=== PATIENT | male | born 1990 | race Caucasian/White ===

== ENCOUNTER 2022-12-22 04:03 | Emergency (ER) | payer OTHER, SELFPAY ==
[2022-12-22 04:09] VITALS: BP 129/88; BP 140/100; PULSE 16; PULSE 71; RESP 16; TEMP 36.9; O2SAT 98; BMI 30.6
[2022-12-22 04:19] VITALS: BP 129/77; PULSE 71; RESP 16; TEMP 36.9; O2SAT 98
[2022-12-22 04:46] LABS: Basophils Percent Auto 0.4 % (0-2); Eosinophils Absolute Auto 0.1 X10*3/uL (0.0-0.4); Eosinophils Percent Auto 1.2 % (0-4); Hematocrit 40.2 % (42.0-52.0); Hemoglobin 13.7 g/dl (14.0-18.0); Imm Gran Abs Auto 0.02 X10*3/uL (0.00-0.03); Imm Gran Pct Auto 0.3 % (0.0-0.4); Lymphocytes Absolute Auto 4.1 X10*3/uL (1.2-4.9); MANUAL DIFF FLAG NO; Mean Corpuscular HGB Conc 34.1 g/dl (31.0-36.0); Mean Corpuscular Hemoglobin 30.1 pg (27.0-33.0); Mean Corpuscular Volume 88.4 fL (80.0-98.0); Mean Platelet Volume 10.6 fL (9.4-12.4); Monocytes Absolute Auto 0.4 X10*3/uL (0.1-1.2); Monocytes Percent Auto 4.7 % (2-11); Neutrophils Absolute Auto 3.1 x10*3/uL (2.0-8.3); Neutrophils Percent Auto 40.4 % (45-73); Platelet Count 199 X10*3/uL (160-400); Red Blood Count 4.55 X10*6/uL (4.60-5.80); Red Cell Distribution Width 12.8 % (11.0-16.0); White Blood Count 7.7 X10*3/uL (4.8-10.8)
[2022-12-22 04:47] LABS: Appearance Urine Clear; Color Urine Yellow; Glucose Urine UA Negative (Negative); Leukocyte Esterase Urine Negative (Negative); Nitrite Urine Negative (Negative); PH 5.5 (5.0-9.0); Specific Gravity - Urine <= 1.005 (1.005-1.025); Urine Blood Negative (Negative); Urine Ketones Negative (Negative); Urine Protein Negative (Neg-Trace)
--- NOTE | 2022-12-22 04:48 | PC.NURSE ---
Patient arrived via EMS after being found sleeping in car with several of beer cans inside. Patient alert and oriented on arrival. Reports having 6 beers. States he is having epigastric pain as well. IV accessed 20 gauge in right ac. Labs drawn, urine collected and sent down to lab. Call nguyen within reach. Will continue to follow plan of care.
[2022-12-22 04:56] LABS: Amphetamine Screen Urine Not Detected (Not Detect); Barbiturates, Urine Not Detected (Not Detect); Benzodiazepines Screen Urine Not Detected (Not Detect); Cannabinoid Screen Urine Not Detected (Not Detect); Cocaine Screen Urine Not Detected (Not Detect); Fentanyl, urine Not Detected (Not Detect); Opiate Screen Urine Not Detected (Not Detect); Phencyclidine Screen Urine Not Detected (Not Detect)
--- OUTSIDE RECORDS SUMMARY | 2022-12-22 04:56 | XMS_ITS | Continuity of Care Document ---
Author Name Unknown Organization [facility] Address [address] [place] [address]- Care Team Providers Care [place] Seamer Name Role Phone Blanche ROSALES, Marija Primary Care Physician [place] [facility] [place] [facility] [id number] Date(s): 11/06/19 - 11/16/19 [facility]/[address] [address]- [facility] Attending Physician: Pranav, Jose Daniel Admitting Physician: AdmtrJose Daniel Referring Physician: Admtr, Davin8 Allergies, Adverse Reactions, Alerts No Known Medication Allergies Substance Reaction Severity Status NKA Active Immunizations Given and Recorded Vaccine Date Status Refusal Reason influenza virus vaccine, inactivated 06/10/18 Give n influenza virus vaccine, inactivated 09/18/16 Give n influenza virus vaccine, inactivated 1 06/30/15 [facility] Measles/Mumps/Rubella Virus Vaccine 2 10/09/16 Giv en Measles/Mumps/Rubella Virus Vaccine 10/09/16 Given tetanus/diphtheria/pertussis, acel(Tdap) 09/18/16 Given 1Result Comment: [06/30/2015] ORDERED BY DR. AMIN 2Result Comment: [10/09/2016 Uncharted] duplicate charting Medications hydrocortisone 1% topical cream 1 applicator, Topically, 2 times a day, for 14 days, apply in a thin film to the affected skin and rub in gently and completely., # 15 Gm, 0 Refills, Acute 11/20/19 13:57:00 EDT, 11/06/19 13:57:00 EDT, [facility], 1 applicator Topi... Start Date: 11/06/19 Stop Date: 11/20/19 Status: Ordered selenium sulfide 2.3% topical shampoo 1 application, Topically, Daily, PRN as needed for scaly scalp and face, Leave on x 10 mins, then rinse, # 180 mL, 2 Refills, Maintenance, 11/06/19 13:56:00 EDT, Shampoo, [facility], if not available please let me kmow.thanks, 1 ap... Start Date: 11/06/19 Stop Date: 02/04/20 Status: Ordered Tylenol Extra Strength 500 mg oral tablet 2 tablet = 1,000 mg, By Mouth, 3 times a day, PRN back pain, # 50 tablet, 0 Refills, Maintenance, 09/16/18 18:43:41 EST Start Date: 09/16/18 Status: Ordered Problem List Condition Effective Dates Status Health Status Inform ant Hepatitis B immune(Confirmed) Active Positive H. pylori titer(Confirmed) Active Hepatic steatosis(Confirmed) 1 Active 1US abdomen May 2018 Social History Social History Type Response Tobacco Use: 4 or less cigar ettes(less than 1/4 pack)/day in last 30 days. Type: Cigarettes. Tobacco use times per day: 2-3 CIGS A DAY. Started at age: 17 Years. Sex
--- OUTSIDE RECORDS SUMMARY | 2022-12-22 04:56 | XMS_ITS | Continuity of Care Document ---
Author Name Unknown Organization [facility] Address [address] [place] [address]- Care Team Providers Care Inside Sales Supervisor Name Role Phone Blanche ROSALES, Marija Primary Care Physician Encounter [facility] [place] Date(s): 12/16/20 - 02/18/21 [facility] [address] [address]- Attending Physician: Hadley Covarrubias MD Admitting Physician: Hadley Covarrubias MD Allergies, Adverse Reactions, Alerts No Known Medication [...] 2Result Comment: [10/09/2016 Uncharted] duplicate charting Medications selenium sulfide 2.3% topical shampoo 1 application, Topically, Daily, PRN as needed for scaly scalp and face, Leave on x 10 mins, then rinse, # 180 mL, 2 Refills, Maintenance, 11/06/19 13:56:00 EDT, Shampoo, [facility], if not available please let me kmow.thanks, [...]
--- OUTSIDE RECORDS SUMMARY | 2022-12-22 04:56 | XMS_ITS | Continuity of Care Document ---
Author Name Unknown Organization [facility] Address [address] [place] [address]- Care Team Providers Care Boilermaker Welder Name Role Phone Blanche ROSALES, Marija Primary Care Physician En[place] [facility] [place] Date(s): 01/19/21 - 02/18/21 [facility] [address] [address]- Attending Physician: Jose Daniel Rock Admitting Physician: AdmtrJose Daniel Referring Physician: Admtr, ArShimon Allergies, Adverse Reactions, Alerts No Known Medication [...] 2 Refills, Maintenance, 11/06/19 13:56:00 EDT, Shampoo, [facility], if not available please let me kmow.thanks, [...]
--- OUTSIDE RECORDS SUMMARY | 2022-12-22 04:56 | XMS_ITS | Continuity of Care Document ---
Author Name Unknown Organization [facility] Address [address] [place] [address]- Care Team Providers Care Ammunition Storage Superintendent Name Role Phone Blanche ROSALES, Marija Primary Care Physician Encounter [facility] [place] Date(s): 12/16/20 - 01/28/21 [facility] [address] [address]- Attending Physician: Hadley Covarrubias MD Admitting Physician: [...] 2 Refills, Maintenance, 11/06/19 13:56:00 EDT, Shampoo, [facility], if not available please let me [...]
--- OUTSIDE RECORDS SUMMARY | 2022-12-22 04:56 | XMS_ITS | Continuity of Care Document ---
Author Name Unknown Organization [facility] Address [address] [place] [address]- Care Team Providers Care Scrap Dealer Name Role Phone Blanche ROSALES, Marija Primary Care Physician En[place] [facility] [place] [id number] Date(s): 11/02/22 - 12/02/22 [facility] [address]- Attending Physician: Jose Daniel Rock Admitting Physician: AdmtrJose Daniel Referring Physician: Admtr, Ar8 Allergies, Adverse Reactions, Alerts No Known Allergies Immunizations Given and Recorded Vaccine Date Status Refusal Reason influenza virus vaccine, inactivated 11/02/22 Artie rded influenza virus vaccine, inactivated 06/10/18 Give n influenza virus vaccine, inactivated 09/18/16 Give n influenza virus vaccine, inactivated 1 06/30/15 [facility] SARS-CoV-2 mRNA ([id number]) vax 11/20/21 Given SARS-CoV-2 (COVID-19) mRNA BNT-162b2 vac 05/14/21 Recorded SARS-CoV-2 (COVID-19) mRNA BNT-162b2 vac 04/04/21 Recorded Measles/Mumps/Rubella Virus Vaccine 2 10/09/16 Giv en Measles/Mumps/Rubella Virus Vaccine 10/09/16 Given tetanus/diphtheria/pertussis, acel(Tdap) 09/18/16 Given 1Result Comment: [06/30/2015] ORDERED BY DR. AMIN 2Result Comment: [10/09/2016 Uncharted] duplicate charting Medications famotidine 40 mg oral tablet 1 tablet = 40 mg, By Mouth, Daily at bedtime, # 30 tablet, 3 Refills, Maintenance, 11/02/22 15:31:00 EDT, Tablet, [id number], Partial fill upon patient request if the prescription is for a schedule II opioid drug., 162.5, cm, 11/02/22 14:42:00... Start Date: 11/02/22 Stop Date: 03/02/23 Status: Ordered fluocinonide 0.05% topical solution APPLY TO SCALP TWICE A DAY NEEDED FOR FLARES Start Date: 11/02/22 Status: Ordered Humira Pen 40 mg/0.4 mL subcutaneous kit 0 Refills, Maintenance, 11/02/22 15:15:00 EDT, Partial fill upon patient request if the prescription is for a schedule II opioid drug. Start Date: 11/02/22 Status: Ordered tiZANidine 2 mg oral tablet 2 mg, 1, tablet, By Mouth, 3 times a day, PRN, # 50 each, Refills 0, Tot. Refills 0, Maintenance, Headache, 09/20/22 15:16:00 EST, Route to Pharmacy Electronically, [id number], Partial fill upon patient request if the prescription is... Start Date: 09/20/22 Status: Ordered triamcinolone 0.1% topical cream APPLY TO TRUNK, ARMS, LEGS TWICE A DAY NEEDED FOR FLARES Start Date: 11/02/22 Status: Ordered Problem List Condition Confirmation Course Effective Dates Status Health St [facility] Informant Hepatitis B immune Confirmed Active Obese class I Confirmed Active Plaque psoriasis Confirmed Active Positive H. pylori titer 1 Confirmed Active Hepatic steatosis 2 Confirmed Active 1s/p triple therapy in 2017 2US abdomen May 2018 Social History Social History Type Response Tobacco Use: 4 or less cigar ettes(less than 1/4 pack)/day in last 30 days. Other: 1-2 cigs per day. Type: Cigarettes. Started at age: 17 Years. Sex Note * Event Display: Non Lab Results Authored Date: Patient Care team information Care Team Personnel Name: Marija Mancia MD Position: [facility] Primary Care Physician Member Role: PCP Address: Address: [address] [place] [id number]- Care Team Related Persons Name: ANA MCDONALD Address: home [address] [place] [id number]
--- OUTSIDE RECORDS SUMMARY | 2022-12-22 04:56 | XMS_ITS | Continuity of Care Document ---
Author Name Unknown Organization [facility] Address Unknown Care Team Providers Care Councillor Aboriginal Land Council Name Role Phone Blanche ROSALES, Marija Primary Care Physician En[place] [facility] [place] Date(s): 11/20/21 - 03/04/22 [facility] Attending Physician: Marija Mancia MD Admitting Physician: Marija Mancia MD Allergies, Adverse Reactions, Alerts No Known Allergies Immunizations Given and Recorded Vaccine Date Status Refusal Reason SARS-CoV-2 mRNA (corinne) vax 11/20/21 Given SARS-CoV-2 (COVID-19) mRNA BNT-162b2 vac 05/14/21 Recorded SARS-CoV-2 (COVID-19) mRNA BNT-162b2 vac 04/04/21 Recorded influenza virus vaccine, inactivated 06/10/18 Give n influenza virus vaccine, inactivated 09/18/16 Give n influenza virus vaccine, inactivated 1 06/30/15 [facility] Measles/Mumps/Rubella Virus Vaccine 2 10/09/16 Giv en Measles/Mumps/Rubella Virus Vaccine 10/09/16 Given tetanus/diphtheria/pertussis, acel(Tdap) 09/18/16 Given 1Result Comment: [06/30/2015] ORDERED BY DR. AMIN 2Result Comment: [10/09/2016 Uncharted] duplicate charting Medications betamethasone topical dipropionate 0.05% ointment 1 application, Topically, 2 times a day, # 45 Gm, 1 Refills, Maintenance, 11/20/21 11:50:00 EDT, Ointment, [facility], expect pt to need 720mg for 4 weeks given. Please dispense 700mg /4 weeks ; pt instructions in bengali, 1 applic... Start Date: 11/20/21 Stop Date: 01/15/22 Status: Ordered calcipotriene 0.005% topical cream 1 application, Topically, 2 times a day, # 100 Gm, 1 Refills, Maintenance, 11/20/21 11:51:00 EDT, Cream, [facility], expect pt to need 720mg for 4 weeks given. Please dispense 700mg /4 weeks, 1 application Topically 2 times a day,x... Start Date: 11/20/21 Stop Date: 01/15/22 Status: Ordered selenium sulfide 2.3% topical shampoo 1 application, Topically, Daily, PRN as needed for scaly scalp and face, Leave on x 10 mins, then rinse, # 180 mL, 2 Refills, Maintenance, 11/06/19 13:56:00 EDT, Shampoo, [facility], if not available please let me [...] Status Inform ant Hepatitis B immune(Confirmed) Active Obese class I(Confirmed) Active Plaque psoriasis(Confirmed) Active Positive H. pylori titer(Confirmed) Active Hepatic steatosis(Confirmed) 1 Active 1US abdomen May 2018 Social History Social History Type Response Tobacco Use: 4 or less cigar ettes(less than 1/4 pack)/day in last 30 days. Type: Cigarettes. Tobacco use times per day: 2-3 CIGS A DAY. Started at age: 17 Years. Sex
--- OUTSIDE RECORDS SUMMARY | 2022-12-22 04:56 | XMS_ITS | Continuity of Care Document ---
Author Name Unknown Organization [facility] Address Unknown Care Team Providers Care Mine Engineering Manager Name Role Phone Blanche ROSALES, Mraija Primary Care Physician [place] [facility] [place] [id number] Date(s): 02/02/22 - 03/04/22 [facility] Attending Physician: Jose Daniel Rock Admitting Physician: Jose Daniel Rock Referring Physician: AdmtrJose Daniel Allergies, Adverse Reactions, Alerts No Known Allergies Immunizations Given and Recorded Vaccine Date Status Refusal Reason SARS-CoV-2 mRNA ([id number]) vax 11/20/21 Given SARS-CoV-2 (COVID-19) mRNA BNT-162b2 [...] 1 Refills, Maintenance, 11/20/21 11:50:00 EDT, Ointment, [facility], expect pt to need 720mg for 4 weeks given. Please dispense 700mg /4 weeks ; pt instructions in ghanaian, 1 applic... Start Date: 11/20/21 Stop Date: 01/15/22 Status: Ordered calcipotriene 0.005% topical cream 1 application, Topically, 2 times a day, # 100 Gm, 1 Refills, Maintenance, 11/20/21 11:51:00 EDT, Cream, [facility], expect pt to need 720mg for [...] 2 Refills, Maintenance, 11/06/19 13:56:00 EDT, Shampoo, [facility], if not available please let me [...]
--- OUTSIDE RECORDS SUMMARY | 2022-12-22 04:56 | XMS_ITS | Continuity of Care Document ---
Author Name Unknown Organization [facility] Address [address] [place] [address]- Care Team Providers Care Beam Builder Helper Name Role Phone Blanche ROSALES, Marija Primary Care Physician ( [phone] [place] [facility] [place] - 10/20/22 [facility] [address]- [place] Allergies, Adverse Reactions, Alerts No Known Allergies Immunizations Given and Recorded Vaccine Date Status Refusal Reason SARS-CoV-2 mRNA ([id number]) vax 11/20/21 Given SARS-CoV-2 (COVID-19) mRNA BNT-162b2 [...] 1 Refills, Maintenance, 11/20/21 11:50:00 EDT, Ointment, [facility], expect pt to need 720mg for 4 weeks given. Please dispense 700mg /4 weeks ; pt instructions in telugu, 1 applic... Start Date: 11/20/21 Stop Date: 01/15/22 Status: Ordered calcipotriene 0.005% topical cream 1 application, Topically, 2 times a day, # 100 Gm, 1 Refills, Maintenance, 11/20/21 11:51:00 EDT, Cream, [facility], expect pt to need 720mg for 4 weeks given. Please dispense 700mg /4 weeks, 1 application Topically 2 times a day,x... Start Date: 11/20/21 Stop Date: 01/15/22 Status: Ordered dicyclomine 10 mg oral capsule 1 capsule = 10 mg, By Mouth, 4 times a day, # 56 capsule, 0 Refills, Maintenance, 09/20/22 15:15:00EST, Capsule, [id number], Partial fill upon patient request if the prescription isfor a schedule II opioid drug., 162.5, cm, 09/20/22... Start Date: 09/20/22 Stop Date: 10/04/22 Status: Ordered loperamide 2 mg oral tablet 1 tablet = 2 mg, By Mouth, Every 4 hours, PRN as needed for loose stool, not to exceed 16 mg/day, #12 tablet, 0 Refills, Acute 06/29/23 15:15:00 EST, 09/20/22 15:15:00 EST, Tablet, [id number], Partial fill upon patient request if the... Start Date: 09/20/22 Stop Date: 06/29/23 Status: Ordered ondansetron 4 mg oral tablet 1 tablet = 4 mg, By Mouth, Every 8 hours, PRN Nausea, # 12 tablet, 0 Refills, Acute 06/29/23 15:16:00 EST, 09/20/22 15:15:00 EST, Tablet, [id number], Partial fill upon patient request if the prescription is for a schedule II opioid dr... Start Date: 09/20/22 Stop Date: 06/29/23 Status: Ordered selenium sulfide 2.3% topical shampoo 1 application, Topically, Daily, PRN as needed for scaly scalp and face, Leave on x 10 mins, then rinse, # 180 mL, 2 Refills, Maintenance, 11/06/19 13:56:00 EDTSaad, [facility], if not available please let me keisha.thanks, 1 ap... Start Date: 11/06/19 Stop Date: 02/04/20 Status: Ordered tiZANidine 2 mg oral tablet 2 mg, 1, tablet, By Mouth, 3 times a day, PRN, # 50 each, Refills 0, Tot. Refills 0, Maintenance, Headache, 09/20/22 15:16:00 EST, Route to Pharmacy Electronically, [id number], Partial fill upon patient request if the prescription is... Start Date: 09/20/22 Status: Ordered Tylenol Extra Strength 500 mg oral tablet 2 tablet = 1,000 mg, By Mouth, 3 times a day, PRN back pain, # 50 tablet, 0 Refills, Maintenance, 09/16/18 18:43:41 EST Start Date: 09/16/18 Status: Ordered Problem List Condition Confirmation Course Effective Dates Status Health St [facility] Informant Hepatitis B immune Confirmed Active Obese class I Confirmed Active Plaque psoriasis Confirmed Active Positive H. pylori titer Confirmed Active Hepatic steatosis 1 Confirmed Active 1US abdomen May 2018 Social History Social History Type Response Tobacco Use: 4 or less cigar ettes(less than 1/4 pack)/day in last 30 days. Type: Cigarettes. Tobacco use times per day: 2-3 CIGS A DAY. Started at age: 17 Years. Sex Patient Care team information Care Team Personnel Name: Marija Mancia MD Position: S Primary Care Physician Member Role: PCP Address: Address: [address] [place] [address]- Care Team Related Persons Name: ANA MCDONALD Address: home [address] [place] [id number]
[2022-12-22 05:01] LABS: Alanine Aminotransferase 113 U/L (0-40); Albumin Level 4.5 g/dL (3.5-5.0); Alkaline Phosphatase 72 U/L (39-117); Anion Gap 13 (12-20); Aspartate Amino Transferase 52 U/L (5-37); Bilirubin Direct 0.2 mg/dL (0.0-0.5); Bilirubin Total 0.7 mg/dL (0.0-1.0); Blood Urea Nitrogen 10 mg/dL (9-16); Calcium 9.4 mg/dL (8.4-10.2); Carbon Dioxide 27 mmol/L (22-29); Chloride 105 mmol/L (96-108); Creatinine Clr Calc Pharmacy 111.3; Estimated Glomerular Filt Rate > 60; Ethanol 202 mg/dL; Glucose Random 93 mg/dL (60-115); Potassium 4.1 mmol/L (3.3-5.1); Sodium 141 mmol/L (135-145); Total Protein 7.8 g/dL (6.5-8.0)
--- NOTE | 2022-12-22 06:42 | ED_ITS ---
HPI - Alcohol General Chief Complaint: ETOH/Substance Use Stated Complaint: ETOH Time Seen by Provider: 12/22/22 06:33 Source: patient and event management consultant Mode of arrival: EMS Limitations: language barrier and altered mental status History of Present Illness HPI narrative: Patient is a 32-year-old male with no documented past history brought to ED by EMS for alcohol intoxication after being found in his vehicle with empty beer cans. Patient minimally able to participate in assessment, wakes to voice then quickly goes back to sleep. He does admit to alcohol use last night, states is unsure of amount. Reports he speaks a little Turkish but prefers Swiss. He denies any complaints of headache, abdomninal pain, nausea at this time. Related Data Allergies Allergy/AdvReac Type Severity Reaction Status Date / Time Unable to Assess Allergy Unverified 12/22/22 06:44 Review of Systems Review of Systems: As per HPI Yes all other systems are reviewed and are negative PMFSH Social History Social History Alcohol intake: current Alcohol intake frequency: holidays/special occasions only Alcohol type: beer Advance Directives: No Advance Directives Information Provided: Yes Physical Exam ED Vital Signs: Vital Signs - 24 hr 12/22/22 04:09 12/22/22 04:19 12/22/22 06:53 Temperature 98.5 F 98.5 F 98.4 F Pulse Rate 71 71 77 Respiratory Rate 16 16 16 Blood Pressure 129/88 129/77 130/84 Pulse Oximetry 98 98 96 Oxygen Delivery Method Room Air Room Air Room Air 12/22/22 08:39 Temperature 98.0 F Pulse Rate 85 Respiratory Rate 18 Blood Pressure 116/75 Pulse Oximetry 98 Oxygen Delivery Method Room Air BMI result Body Mass Index 30.6 Const General: cooperative, healthy appearing, no acute distress, alert and awake Nutritional Appearance: average body habitus Orientation/consciousness: oriented to person, oriented to place and oriented to time Limitations: language barrier HENMT Head: Yes normal to inspection, Yes normocephalic and Yes atraumatic Ears: external ears normal General nose exam: Normal external nose present Mouth: Normal oral and palatal mucosa present Eyes Pupils: Equal, round and reactive pupils present Neck Neck: Yes normal visual inspection Chest Chest palpation & inspection: normal inspection of the chest and normal palpation of entire chest wall Resp Effort & Inspection: normal respiratory effort Auscultation: clear to auscultation bilaterally Cardio Rate: regular rate Rhythm: regular rhythm Heart sounds: S1 normal heart sound present and S2 normal heart sound present GI Inspection: Yes normal to inspection Palpation (GI): Soft to palpation, nontender, no guarding, no hepatosplenomegaly and No Rebound tenderness present Auscultation: normoactive bowel sounds Skin General skin exam: no rashes or lesions noted Trauma: no lacerations or abrasions Neuro General: oriented to person, oriented to place, oriented to time and gait normal Cranial nerves: Yes Equal, round and reactive pupils present Cognition (Neuro): normal cognition Motor exam (neuro): 5/5 motor strength present throughout Extrem General: Yes normal to inspection and Yes full ROM Psych Speech and movement: Normal speech and movement present Affect: normal affect Attitude: cooperative Thought process: Normal thought process present Thought content: suicidality and no homicidality Insight: Good insight present (Psych) Judgement: Good judgement present (Psych) Course Course Course Narrative: 09:20 Patient re-evaluated now that he is sober. He is alert and oriented, complains of mild epigastric pain and feels hungry. He states that he drinks every 3 to 4 months, does not drink daily and declines treatment for alcohol detox. He denies any thoughts of SI or HI. Abdominal exam and labs unremarkable, VSS, pt tolerated PO food and drink and witnessed ambulating with steady gait, will discharge home. Medical Decision Making Medical Decision Making [facility] Narrative: Patient is a 32-year-old male brought in by EMS for alcohol intoxication after being found in his vehicle with empty beer cans. On exam, patient is drowsy but wakes to voice, then quickly falls back to sleep, his vital signs are stable, CIWA 0, no obvious signs of trauma, PERRL, GCS 13, neuro exam grossly consistent with ETOH intoxication, abdomen soft and nontender, no abrasions or lacerations. Concern for ETOH or drug intoxication, trauma, ICH, electrolyte disturbance, hypoglycemia, infection, Lower concern for liver disease or infection causing encephalopathy, endocrine emergency, seizure. Plan: labs, urine, serial reassessment. Please refer to course for remaining clinical decision making. Differential Diagnosis Differential Diagnoses: The differential diagnosis associated with the presentation includes As above. Lab Data [facility] Lab Attestation statement: I reviewed the patient's lab results. 12/22/22 04:40 05/06/23 04:40 Labs: Lab Results 12/22/22 12/22/22 12/22/22 Range/Units 04:40 04:40 04:40 WBC 7.7 (4.8-10.8) X10*3/uL RBC 4.55 L (4.60-5.80) X10*6/uL Hgb 13.7 L (14.0-18.0) g/dl Hct 40.2 L (42.0-52.0) % MCV 88.4 (80.0-98.0) fL MCH 30.1 (27.0-33.0) pg MCHC 34.1 (31.0-36.0) g/dl RDW 12.8 (11.0-16.0) % Plt Count 199 (160-400) X10*3/uL MPV 10.6 (9.4-12.4) fL Immature Gran % (Auto) 0.3 (0.0-0.4) % Neut % (Auto) 40.4 L (45-73) % Lymph % (Auto) 53.0 H (20-40) % [place] % (Auto) 4.7 (2-11) % Eos % (Auto) 1.2 (0-4) % Baso % (Auto) 0.4 (0-2) % Lymph # (Auto) 4.1 (1.2-4.9) X10*3/uL [place] # (Auto) 0.4 (0.1-1.2) X10*3/uL Eos # (Auto) 0.1 (0.0-0.4) X10*3/uL Baso # (Auto) 0.0 (0.0-0.2) X10*3/uL Abs Immat Gran (auto) 0.02 (0.00-0.03) X10*3/uL Absolute Neuts (auto) 3.1 (2.0-8.3) x10*3/uL Absolute Nucleated RBC 0.000 (0.0-0.012) X10*3/uL Nucleated RBC % (auto) 0.0 (0.0-0.2) /100WBC Sodium 141 (135-145) mmol/L Potassium 4.1 (3.3-5.1) mmol/L Chloride 105 (96-108) mmol/L Carbon Dioxide 27 (22-29) mmol/L Anion Gap 13 (12-20) BUN 10 (9-16) mg/dL Creatinine 0.97 (0.5-1.4) mg/dL Estim Creat Clear Calc 111.3 Estimated GFR > 60 Random Glucose 93 (60-115) mg/dL Calcium 9.4 (8.4-10.2) mg/dL Total Bilirubin 0.7 (0.0-1.0) mg/dL Direct Bilirubin 0.2 (0.0-0.5) mg/dL AST 52 H (5-37) U/L ALT 113 H (0-40) U/L Alkaline Phosphatase 72 (39-117) U/L Total Protein 7.8 (6.5-8.0) g/dL Albumin 4.5 (3.5-5.0) g/dL Urine Color Yellow Urine Appearance Clear Urine pH 5.5 (5.0-9.0) Ur Specific Driscoll <= 1.005 (1.005-1.025) Urine Protein Negative (Neg-Trace) mg/dL Urine Glucose (UA) Negative (Negative) mg/dL Urine Ketones Negative (Negative) mg/dL Urine Blood Negative (Negative) Urine Nitrite Negative (Negative) Ur Leukocyte Esterase Negative (Negative) Urine Opiates Screen (Not Detect) Urine Fentanyl Screen (Not Detect) Ur Barbiturates Screen (Not Detect) Ur Phencyclidine Scrn (Not Detect) Ur Amphetamines Screen (Not Detect) U Benzodiazepines Scrn (Not Detect) Urine Cocaine Screen (Not Detect) U Marijuana (THC) Screen (Not Detect) Ethyl Alcohol 202 mg/dL 12/22/22 Range/Units 04:40 WBC (4.8-10.8) X10*3/uL RBC (4.60-5.80) X10*6/uL Hgb (14.0-18.0) g/dl Hct (42.0-52.0) % MCV (80.0-98.0) fL MCH (27.0-33.0) pg MCHC (31.0-36.0) g/dl RDW (11.0-16.0) % Plt Count (160-400) X10*3/uL MPV (9.4-12.4) fL Immature Gran % (Auto) (0.0-0.4) % Neut % (Auto) (45-73) % Lymph % (Auto) (20-40) % [place] % (Auto) (2-11) % Eos % (Auto) (0-4) % Baso % (Auto) (0-2) % Lymph # (Auto) (1.2-4.9) X10*3/uL [place] # (Auto) (0.1-1.2) X10*3/uL Eos # (Auto) (0.0-0.4) X10*3/uL Baso # (Auto) (0.0-0.2) X10*3/uL Abs Immat Gran (auto) (0.00-0.03) X10*3/uL Absolute Neuts (auto) (2.0-8.3) x10*3/uL Absolute Nucleated RBC (0.0-0.012) X10*3/uL Nucleated RBC % (auto) (0.0-0.2) /100WBC Sodium (135-145) mmol/L Potassium (3.3-5.1) mmol/L Chloride (96-108) mmol/L Carbon Dioxide (22-29) mmol/L Anion Gap (12-20) BUN (9-16) mg/dL Creatinine (0.5-1.4) mg/dL Estim Creat Clear Calc Estimated GFR Random Glucose (60-115) mg/dL Calcium (8.4-10.2) mg/dL Total Bilirubin (0.0-1.0) mg/dL Direct Bilirubin (0.0-0.5) mg/dL AST (5-37) U/L ALT (0-40) U/L Alkaline Phosphatase (39-117) U/L Total Protein (6.5-8.0) g/dL Albumin (3.5-5.0) g/dL Urine Color Urine Appearance Urine pH (5.0-9.0) Ur Specific Dr[place]coll (1.005-1.025) Urine Protein (Neg-Trace) mg/dL Urine Glucose (UA) (Negative) mg/dL Urine Ketones (Negative) mg/dL Urine Blood (Negative) Urine Nitrite (Negative) Ur Leukocyte Esterase (Negative) Urine Opiates Screen Not Detected (Not Detect) Urine Fentanyl Screen Not Detected (Not Detect) Ur Barbiturates Screen Not Detected (Not Detect) Ur Phencyclidine Scrn Not Detected (Not Detect) Ur Amphetamines Screen Not Detected (Not Detect) U Benzodiazepines Scrn Not Detected (Not Detect) Urine Cocaine Screen Not Detected (Not Detect) U Marijuana (THC) Screen Not Detected (Not Detect) Ethyl Alcohol mg/dL Discharge Plan Discharge Clinical Impression: Alcoholic intoxication Patient Disposition: Home, Self-Care Instructions: Alcohol Intoxication (ED) Additional Instructions: You have been evaluated in the emergency department today for alcohol intoxication. You have been observed in the emergency department and are now able to walk on your own and are tolerating fluids/food. Please follow up with your primary care physician. Return to the emergency department if you experience shaking, seizures, palpitations, inability to keep down fluids, worsening or uncontrolled pain, confusion, persistent vomiting, or for any other concerning symptoms. Print Language: Swiss
[2022-12-22 06:53] VITALS: BP 130/84; PULSE 77; RESP 16; TEMP 36.9; O2SAT 96
--- NOTE | 2022-12-22 07:17 | PC.NURSE ---
resumed care of patient this morning, he is currently resting in bed at this time, all basic needs met at this time, awaiting dispo
[2022-12-22 08:39] VITALS: BP 116/75; PULSE 85; RESP 18; TEMP 36.7; O2SAT 98
--- NOTE | 2022-12-22 09:25 | PC.NURSE ---
Provider requesting to PO trial patient, and assess ambulation, food given to patient at this time. Pt declining detox
[2022-12-22 09:34] VITALS: BP 145/89; PULSE 72; RESP 18; TEMP 36.9; O2SAT 100
== END 2022-12-22 09:37 | disposition home or self-care (01) ==
PROVIDERS: Emergency Provider Emergency Medicine
DX: F10.220 Alcohol dependence with intoxication, uncomplicated (principal); Y90.7 Blood alcohol level of 200-239 mg/100 ml
CPT/HCPCS: 36415; 80053; 80307; 81003; 82248; 85025; 99284; 99285